=== PATIENT | male | born 1960 | race Caucasian/White ===

== ENCOUNTER 2017-11-24 09:57 | Emergency (ER) | payer BC ==
[2017-11-24] MEDS ORDERED: Ketorolac Tromethamine 30 MG/ML VIAL ONE (10:28)
[2017-11-24] MEDS ORDERED: Dexamethasone 10 MG/ML VIAL ONE (10:28)
[2017-11-24 11:12] LABS: Anion Gap 20 mmol/L (10-20); BUN (Urea Nitrogen) 37 mg/dL (8.4-25.7); Calc. Creatinine Clearance 0 mL/min (70-130); Calcium 10.3 mg/dL (7.8-10.44); Carbon Dioxide 21 mmol/L (22-29); Chloride 99 mmol/L (98-107); Estimated GFR-MDRD 55; Glucose 180 mg/dL (70-105); Sodium 136 mmol/L (136-145)
[2017-11-24 11:16] LABS: #Basophils 0.1 thou/uL (0.0-0.2); #Eosinphils 0.1 thou/uL (0.0-0.7); #Lymphocytes 2.4 thou/uL (1.20-3.40); #Monocytes 1.1 thou/uL (0.11-0.59); #Neutrophils 8.1 thou/uL (1.40-6.50); %Basophils 1.2 % (0.0-1.0); %Eosinophils 0.6 % (0.0-10.0); %Lymphocytes 20.3 % (21.0-51.0); %Monocytes 9.4 % (0.0-10.0); %Neutrophils 68.4 % (42.0-75.0); Hemoglobin 15.9 g/dL (14.0-18.0); Mean Corpuscular HGB CONC 34.1 g/dL (32.0-36.0); Mean Corpuscular Hemoglobin 30.9 pg (27.0-31.0); Mean Corpuscular Volume 90.7 fl (80.0-94.0); Mean Platelet Volume 6.6 fL (7.4-10.4); Platelet Count 411 thou/uL (130-400); RBC Distribution Width 11.9 % (11.5-14.5); Red Blood Cell (RBC) Count 5.14 mill/uL (4.70-6.10); White Blood Cell (WBC) Count 11.9 thou/uL (4.8-10.8)
[2017-11-24 11:19] LABS: CKMB 1.4 ng/mL (0-6.6); Troponin I Less than 0.010 ng/mL (< 0.028)
--- NOTE | 2017-11-24 11:30 | RAD ---
PA AND LATERAL CHEST: HISTORY: Right shoulder pain. FINDINGS: Heart size and mediastinum are within normal limits. The lungs are clear of infiltrates. There are arthritic changes in the spine. IMPRESSION: No active intrathoracic disease. POS: [facility]
--- NOTE | 2017-11-24 11:32 | RAD ---
RIGHT SHOULDER THREE VIEWS: HISTORY: Right shoulder pain. FINDINGS: There are arthritic changes of the shoulder with mild to moderate arthritic changes of the AC joint a nd mild changes of the glenohumeral joint space. There are no signs of fracture. IMPRESSION: Mild arthritic changes of the shoulder. POS: [facility]
== END 2017-11-24 12:09 | disposition home or self-care (01) ==
LOC: SCSER 09:57
DX: S43.401A Unspecified sprain of right shoulder joint, initial encounter (principal); E11.9 Type 2 diabetes mellitus without complications; E78.5 Hyperlipidemia, unspecified; I10 Essential (primary) hypertension; Z79.82 Long term (current) use of aspirin; Z79.899 Other long term (current) drug therapy; X58.XXXA Exposure to other specified factors, initial encounter
CPT/HCPCS: 36415; 71046; 80048; 82553; 84484; 85025; 93005; 96372; J1100; J1885

== ENCOUNTER 2017-12-01 08:09 | Outpatient (CLI) | payer BC ==
--- NOTE | 2017-12-01 10:50 | MRI ---
MRI CERVICAL SPINE WITHOUT CONTRAST: Date: 12/01/17 HISTORY: M54.12, cervical radiculopathy. Neck pain with pain down the right shoulder. TECHNIQUE: Multiplanar, multisequence MRI of cervical spine performed without contrast. FINDINGS: Exam is somewhat limited due to motion artifact on multiple sequences. The cerebellar tonsils are abo ve the foramen magnum. The background signal of the cervical spine is normal. Mild straightening of the cervical spine likely degenerative in nature. No abnormal areas of marrow s ignal. The marrow signal of the clivus is maintained. Paraspinal musculature has minimal atrophy. Levels are as follows: C2-3: Moderate degenerative disease of the facets on the right and moderate to severe on the left. Mild unc inate process hypertrophy. No significant neural foraminal or spinal canal narrowing. C3-4: Moderate degenerative disc space height loss. Moderate uncinate process hypertrophy. Moderate facet a rthrosis. Moderate left and right-sided neural foraminal narrowing. Mild circumferential disc bulge. The spinal canal measures approximately 9.0 mm. C4-5: Moderate degenerative disc space height loss. Moderate uncinate process hypertrophy. Moderate left an d right facet arthrosis. The spinal canal measures approximately 1.0 cm. C5-6: Moderate facet arthropathy. Moderate uncinate process hypertrophy. Low grade circumferential disc bul ge. There is moderate bilateral neural foraminal narrowing. Spinal canal measures 9.0 mm. C6-7: Moderate degenerative disc space height loss. Moderate facet arthrosis. Moderate uncinate process hyp ertrophy. There is moderate right and mild left-sided neural foraminal narrowing. The spinal canal me asures over 1.0 cm. C7-T1: Moderate circumferential disc bulge. There is narrowing of the spinal canal to approximately 8.0 mm. There is significant neural foraminal narrowing. IMPRESSION: Moderate spondylosis as described above. The spinal canal is not significantly narrowed except that C 7-T1 has mild ventral CSF space effacement due to a circumferential disc bulge. POS: [facility]
== END 2017-12-01 08:10 | disposition home or self-care (01) ==
LOC: TBSIIMAG 08:09
PROVIDERS: ATTEND Orthopaedic Surgery
DX: M47.22 Other spondylosis with radiculopathy, cervical region (principal)
CPT/HCPCS: 72141